=== PATIENT | male | born 1995 | race Caucasian/White ===

== ENCOUNTER 2019-01-29 11:02 | Emergency (ER) | payer BC ==
[2019-01-29] MEDS ORDERED: Sodium Chloride 0.9% 10 ML Syringe FLUSH PRN (11:17)
[2019-01-29 11:18] VITALS: BP 124/90; PULSE 70
--- NOTE | 2019-01-29 11:20 | EDM.PDOC ---
ED HPI GENERAL MEDICAL PROBLEM - General Chief Complaint: Skin Complaint Stated Complaint: RASH/SORE THROAT Time Seen by Provider: 01/29/19 11:11 Source of Information: Reports: Patient History Limitations: Reports: No Limitations - History of Present Illness INITIAL COMMENTS - FREE TEXT/NARRATIVE: Patient's unfortunate 23-year-old male who presents emergency Department today with complaint of rash and sore throat. Patient reports that symptoms started approximately one week ago had that time he was seen in urgent care in [place] was found to have an enlarged liver and was admitted the hospital there at which time he was noted to have elevated liver enzymes. Patient reports that he was diagnosed with mono and was discharged home to follow up and have his liver enzymes rechecked. Patient reports that since that time he is continued to have cough which is nonproductive sore throat with painful swallowing however he is able to tolerate by mouth food and fluids well. Patient arrives today and does have jaundice just mild and his sclera is icteric he does have a rash which appears like a scarlatiniform rash. Patient has a history of rickets and hypophosphatemia Throat Pain Score (Numeric/FACES): 9 - Related Data Allergies Allergy/AdvReac Type Severity Reaction Status Date / Time adhesive Allergy Blisters Verified 01/29/19 11:17 Penicillins Allergy Rash Verified 01/29/19 11:17 Home Meds: Home Meds . 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 Denies: Shortness of Breath GI/Abdominal: Denies: Abdominal Pain, Nausea, Vomiting Skin: Reports: Rash ED EXAM, SKIN/RASH Exam: See Below Exam Limited By: No Limitations General Appearance: Alert, WD/WN, Mild Distress Eye Exam: Bilateral Eye: Other (Sclera icteric) Ears: Normal External Exam, Normal Canal, Hearing Grossly Normal, Normal TMs Nose: Normal Inspection, Normal Mucosa, No Blood Throat/Mouth: Other (Pulses 3+ bilaterally with erythema, posterior pharynx erythematous) Neck: Normal Inspection, Supple, Non-Tender, Full Range of Motion Respiratory/Chest: No Respiratory Distress, Lungs Clear, Normal Breath Sounds, No Accessory Muscle Use, Chest Non-Tender Cardiovascular: Normal Peripheral Pulses, Regular Rate, Rhythm, No Edema, No Gallop, No JVD, No Murmur, No Rub GI/Abdominal: Normal Bowel Sounds, Soft, Non-Tender, No Organomegaly, No Distention, No Abnormal Bruit, No Mass Back Exam: Normal Inspection, Full Range of Motion, NT Extremities: Normal Inspection, Normal Range of Motion, Non-Tender, No Pedal Edema, Normal Capillary Refill Neurological: Alert Location, Skin: Other (Scarlatiniform rash diffuse) Course - Vital Signs Last Recorded V/S: Last Vital Signs Temp 99.3 F 01/29/19 11:11 Pulse 70 01/29/19 11:11 Resp 18 01/29/19 11:11 BP 124/90 01/29/19 11:11 Pulse Ox 99 01/29/19 11:11 - Orders/Labs/Meds Orders: Active Orders 24 hr Category Date Time Status STREP SCRN A RAPID W CULT CONF [RM] Stat Lab 01/29/19 11:30 Results UA RFX KAMILLA AND CULT IF INDIC [URIN] Stat Lab 01/29/19 11:17 Ordered Sodium Chloride 0.9% [Saline Flush] Med 01/29/19 11:17 Active 10 ml FLUSH ASDIRECTED PRN Saline Lock Insert [OM.PC] Stat Oth 01/29/19 11:17 Ordered Medication Orders Sodium Chloride (Saline Flush) 10 ml FLUSH ASDIRECTED PRN PRN Reason: Keep Vein Open Last Admin: 01/29/19 12:04 Dose: 10 ml Labs: Laboratory Tests 01/29/19 01/29/19 Range/Units 11:29 11:29 WBC 12.32 H (4.23-9.07) K/mm3 RBC 5.18 (4.63-6.08) M/mm3 Hgb 15.0 (13.7-17.5) gm/dl Hct 42.5 (40.1-51.0) % MCV 82.0 (79.0-92.2) fl MCH 29.0 (25.7-32.2) pg MCHC 35.3 (32.2-35.5) g/dl RDW Std Deviation 46.4 H (35.1-43.9) fL Plt Count 254 (163-337) K/mm3 MPV 9.8 (9.4-12.3) fl Neut % (Auto) 22.8 L (34.0-67.9) % Lymph % (Auto) 60.8 H (21.8-53.1) % [place] % (Auto) 11.4 (5.3-12.2) % Eos % (Auto) 0.6 L (0.8-7.0) Baso % (Auto) 2.8 H (0.1-1.2) % Neut # (Auto) 2.81 (1.78-5.38) K/mm3 Lymph # (Auto) 7.49 H (1.32-3.57) K/mm3 [place] # (Auto) 1.41 H (0.30-0.82) K/mm3 Eos # (Auto) 0.07 (0.04-0.54) K/mm3 Baso # (Auto) 0.34 H (0.01-0.08) K/mm3 Manual Slide Review Abnormal smear Sodium 135 L (136-145) mEq/L Potassium 3.8 (3.5-5.1) mEq/L Chloride 99 (98-107) mEq/L Carbon Dioxide 27 (21-32) mEq/L Anion Gap 12.8 (5-15) BUN 7 (7-18) mg/dL Creatinine 0.6 L (0.7-1.3) mg/dL Est Cr Clr Drug Dosing 161.70 mL/min Estimated GFR (MDRD) > 60 (>60) mL/min BUN/Creatinine Ratio 11.7 L (14-18) Glucose 89 (74-106) mg/dL Calcium 8.1 L (8.5-10.1) mg/dL Total Bilirubin 11.2 H (0.2-1.0) mg/dL AST 166 H (15-37) U/L ALT 227 H (16-63) U/L Alkaline Phosphatase 1090 H (46-116) U/L Total Protein 7.9 (6.4-8.2) g/dl Albumin 2.4 L (3.4-5.0) g/dl Globulin 5.5 gm/dL Albumin/Globulin Ratio 0.4 L (1-2) Lipase 118 (73-393) U/L Meds: Medications Generic Name Dose Route Start Last Admin Trade Name Freq PRN Reason Stop Dose Admin Sodium Chloride 10 ml 01/29/19 11:17 01/29/19 12:04 Saline Flush FLUSH 10 ml ASDIRECTED PRN Administration Keep Vein Open Discontinued Medications Generic Name Dose Route Start Last Admin Trade Name Freq PRN Reason Stop Dose Admin Ceftriaxone Sodium 1 gm/ 100 mls @ 200 mls/hr 01/29/19 12:05 01/29/19 12:59 Sodium Chloride IV 01/29/19 12:34 Not Given ONETIME ONE Ceftriaxone Sodium 1 gm/ 100 mls @ 200 mls/hr 01/29/19 12:15 01/29/19 12:37 Sodium Chloride IV 01/29/19 12:44 200 mls/hr STAT ONE Administration - Re-Assessments/Exams Free Text/Narrative Re-Assessment/Exam: 01/29/19 11:49 CT abdomen and pelvis from [place] dated 01/22/2019 showed "impression: #1 mild diffuse anasarca. Mild free fluid in the lower pelvis. #2 edematous appearance the gallbladder, which is nonspecific but can be seen with acute Sinus. Correlation with LFTs is recommended to. #3 one or megaly. The spleen measures 15.5 cm in length." Patient had MRI of the abdomen without contrast on 01/23/2019 which showed "impression: #1 marked gallbladder wall thickening is likely secondary to the underlying liver disease/acute hepatitis. #2. Portal edema, prominent and enlarged leela hepatis lymph nodes and splenomegaly are also likely due to the sequelae of underlying liver disease/acute hepatitis." 01/22/2019 WBC showed 14,200 alkaline phosphatase was 388 AST was 154 ALT was 252 and T bili was 5.8 Free Text/Narrative Re-Assessment/Exam: 01/29/19 13:[address] Medellin accepts patient in transfer [facility] in [place] Departure - Departure Time of Disposition: 13:18 Disposition: DC/Tfer to Hospice-Med Fac [facility] Clinical Impression: Scarlet fever with other complications, Acute hepatitis - Discharge Information Referrals: PCP,None [Primary Care Provider] - Forms: ED Department Discharge Sepsis Event Note - Evaluation Sepsis Screening Result: No Definite Risk - Focused Exam Vital Signs: Vital Signs Temp Pulse Resp BP Pulse Ox 01/29/19 11:11 99.3 F 70 18 124/90 99 Date Exam was Performed: 01/29/19 Time Exam was Performed: 13:18 - My Orders Last 24 Hours: My Active Orders 01/29/19 11:17 UA RFX KAMILLA AND CULT IF INDIC [URIN] Stat Sodium Chloride 0.9% [Saline Flush] 10 ml FLUSH ASDIRECTED PRN Saline Lock Insert [OM.PC] Stat 01/29/19 11:30 STREP SCRN A RAPID W CULT CONF [RM] Stat - Assessment/Plan Last 24 Hours: My Active Orders 01/29/19 11:17 UA RFX KAMILLA AND CULT IF INDIC [URIN] Stat Sodium Chloride 0.9% [Saline Flush] 10 ml FLUSH ASDIRECTED PRN Saline Lock Insert [OM.PC] Stat 01/29/19 11:30 STREP SCRN A RAPID W CULT CONF [RM] Stat
[2019-01-29] MEDS ORDERED: cefTRIAXone 1 GM in Sodium Chloride 0.9% 100 ML IV ONE ×2 (12:05→12:15)
== END 2019-01-29 14:15 ==
LOC: JD.ED 11:02
DX: A38.8 Scarlet fever with other complications (principal); B17.9 Acute viral hepatitis, unspecified; Z91.048 Other nonmedicinal substance allergy status
CPT/HCPCS: 36415; 80053; 83690; 85025; 87430; 96365; 99284; J0696; J7050; 99283